=== PATIENT | female | born 1995 | race Caucasian/White ===

== ENCOUNTER 2017-10-26 17:37 | Inpatient (IN) | payer MEDICAID ==
[~2017-10-26] VITALS: Ht 157.5 cm; Wt 61.7 kg
[2017-10-26 19:13] VITALS: BP 129/72
[2017-10-26 20:00] VITALS: BP 121/74
[2017-10-26] MEDS ORDERED: OLANZapine 5 MG RAPDIS TABLET PO PRN (20:00)
[2017-10-26] MEDS ORDERED: LORazepam 2 MG TABLET PO PRN (20:00)
[2017-10-26] MEDS ORDERED: QUEtiapine FUMARATE 100 MG TABLET PO PRN (20:00)
[2017-10-26 21:00] VITALS: BP 121/60
[2017-10-26] MEDS ORDERED: PNEUMOCOCCAL VACCINE POLYVALENT 0.5 ML VIAL [PPSV23] IM ONE (21:00)
[2017-10-26] MEDS ORDERED: ALBUTEROL SULFATE HFA 90 MCG/PUFF 8 GM INHALER IH PRN (21:15)
[2017-10-26 22:00] VITALS: BP 118/62
[2017-10-26 23:04] VITALS: BP 110/64
[2017-10-27] VITALS (8 sets, daily range): BP systolic 100–120; BP diastolic 61–69
[2017-10-27] MEDS: NICOTINE 14 MG/24 HOUR PATCH TD SCH (08:13)
[2017-10-27] MEDS: BACITRACIN 28.4 GM OINTMENT TP SCH ×2 (08:13→16:09)
[2017-10-27] MEDS: OLANZapine 5 MG TABLET PO SCH (16:09)
[2017-10-28] VITALS: BP 108/57
[2017-10-28 08:05] VITALS: BP 121/64
[2017-10-28] MEDS: NICOTINE 14 MG/24 HOUR PATCH TD SCH (09:30)
[2017-10-28] MEDS: OLANZapine 5 MG TABLET PO SCH ×2 (09:30→16:24)
[2017-10-28] MEDS: BACITRACIN 28.4 GM OINTMENT TP SCH ×2 (09:30→16:30)
[2017-10-28 16:06] VITALS: BP 102/60
[2017-10-29 06:16] VITALS: BP 100/64
[2017-10-29 08:29] VITALS: BP 104/67
[2017-10-29] MEDS: OLANZapine 5 MG TABLET PO SCH ×2 (08:40→16:11)
[2017-10-29] MEDS: NICOTINE 14 MG/24 HOUR PATCH TD SCH (08:40)
[2017-10-29] MEDS: BACITRACIN 28.4 GM OINTMENT TP SCH ×2 (08:40→16:13)
[2017-10-29 16:00] VITALS: BP 120/65
[2017-10-29] MEDS ORDERED: BENZTROPINE MESYLATE 1 MG/ML 2 ML VIAL IM ONE (18:45)
[2017-10-30 06:13] VITALS: BP 118/62
[2017-10-30 08:01] VITALS: BP 104/60
[2017-10-30] MEDS: NICOTINE 14 MG/24 HOUR PATCH TD SCH (08:02)
[2017-10-30] MEDS: OLANZapine 5 MG TABLET PO SCH (08:07)
[2017-10-30] MEDS ORDERED: BENZTROPINE MESYLATE 2 MG TABLET PO SCH (09:00)
[2017-10-30] MEDS: BACITRACIN 28.4 GM OINTMENT TP SCH (09:28)
[2017-10-30] MEDS ORDERED: BENZ2TAB10 PO (14:30)
[2017-10-30] MEDS ORDERED: NICO-703 TD (14:30)
[2017-10-30] MEDS ORDERED: OLAN5TAB2 PO (14:30)
== END 2017-10-30 18:41 | disposition home or self-care (01) | DRG 753 ==
LOC: B2S 19:49
PROVIDERS: ATTEND Psychiatry & Neurology Child & Adolescent Psychiatry
DX: F31.2 Bipolar disorder, current episode manic severe with psychotic features (principal); F22 Delusional disorders; F17.200 Nicotine dependence, unspecified, uncomplicated; J45.909 Unspecified asthma, uncomplicated; T14.8XXA Other injury of unspecified body region, initial encounter; X58.XXXA Exposure to other specified factors, initial encounter; Z71.6 Tobacco abuse counseling; Y93.89 Activity, other specified; Y92.89 Other specified places as the place of occurrence of the external cause
CPT/HCPCS: 90471; J0515